=== PATIENT | male | born 1990 | race Caucasian/White ===

== ENCOUNTER 2018-01-01 09:44 | Emergency (ER) | payer SELFPAY ==
[2018-01-01 10:13] VITALS: BP 128/86; PULSE 88; RESP 20; TEMP 98.4; O2SAT 100
--- NOTE | 2018-01-01 11:06 | RADRPT ---
EXAM DATE/TIME: 01/01/2018 10:59 [facility] COMPARISON: No previous studies available for comparison. INDICATIONS : Chest pain. MEDICAL HISTORY : None. SURGICAL HISTORY : None. ENCOUNTER: Initial ACUITY: 1 day PAIN SCORE: 5/10 LOCATION: Bilateral chest FINDINGS: PA and lateral views of the chest demonstrate the lungs to be symmetrically aerated without evidence of mass, infiltrate or effusion. The cardiomediastinal contours are unremarkable. Osseous structure s are intact. CONCLUSION: No acute disease. David Tillman MD on January 01, 2018 at 11:04 Board Certified Radiologist. This report was verified electronically.
[2018-01-01] MEDS ORDERED: SODIUM CHLOR 0.9% 1000 ML INJ 1,000 ML IV SCH (11:25)
[2018-01-01] MEDS ORDERED: SODIUM CHLORIDE 0.9% FLUSH 10 ML FLUSH IV FLUSH PRN (11:30)
[2018-01-01] MEDS ORDERED: KETOROLAC TROMETHAMINE 30 MG/ML (IVP) VIAL IVP ONE (11:30)
[2018-01-01] MEDS ORDERED: PANTOPRAZOLE SODIUM 40 MG VIAL IVP ONE (11:30)
--- NOTE | 2018-01-01 11:33 | PD ---
HPI Chief Complaint: Chest Pain Time Seen by Provider: 11:13 Travel History International Travel<30 days: No Contact w/Intl Traveler<30days: No Traveled to known affect area: No History of Present Illness HPI 27-year-old male presents to the emergency department with complaint of abdominal pain and reproducible chest pain 1 week. Reports fever of 100.0 last night. Reports being sick with a cold a week and a half ago and had a cough, which has now resolved. Denies nasal congestion, ear pain, sore throat. Denies shortness of breath. Reports vomiting 3 or 4 days ago. Reports diarrhea now. Denies hematemesis, hematochezia. Denies dysuria, hematuria. Denies history of abdominal surgeries. Chest pain is midsternal. Abdominal pain is all over. Pain is constant. No known relieving factors. Chest pain and abdominal pain is worse with laughing, coughing, deep breathing, pressure to the area. Has not taken any medications or try any treatments to alleviate his symptoms. Reports occasional alcohol use. Denies illicit drug use. No primary care provider. No known allergies. Denies significant past medical history. Has no other medical complaints. No other modifying factors or associated signs and symptoms. PFSH Social History Tobacco Use: No Allergies-Medications (Allergen,Severity, Reaction): Coded Allergies: No Known Allergies (Unverified , 01/01/18) Reported Meds & Prescriptions Reported Meds & Active Scripts Active Tessalon Perles (Benzonatate) 100 Mg Cap 100 Mg PO TID PRN 3 Days Azithromycin 500 Mg Tab 500 Mg PO DAILY Ibuprofen 800 Mg Tab 800 Mg PO Q6HR PRN Robaxin (Methocarbamol) 500 Mg Tab 500 Mg PO QID PRN Review of Systems Except as stated in HPI: all other systems reviewed are Neg Physical Exam Narrative GENERAL: Well-nourished, well-developed black male patient, in no acute distress ; afebrile; nontoxic-appearing SKIN: Warm and dry. HEAD: Atraumatic. Normocephalic. EYES: Pupils equal and round. No scleral icterus. No injection or drainage. ENT: Mucosa pink and moist. Airway patent. NECK: Trachea midline. CHEST: Reproducible tenderness over the sternum; without deformity or crepitance. No retractions or use of accessory muscles. CARDIOVASCULAR: Regular rate and rhythm. No murmur appreciated. RESPIRATORY: No accessory muscle use. Clear to auscultation. Breath sounds equal bilaterally. GASTROINTESTINAL: Abdomen soft, tenderness on palpation to epigastric area, nondistended. Hepatic and splenic margins not palpable. Bowel sounds are active 4 quadrants. Nonrigid. No rebound tenderness. No guarding. MUSCULOSKELETAL: No obvious deformities. No clubbing. No cyanosis. No edema. NEUROLOGICAL: Awake and alert. Oriented 3. No obvious cranial nerve deficits. Motor grossly within normal limits. Normal speech. PSYCHIATRIC: Appropriate mood and affect; insight and judgment normal. Data Data Last Documented VS Vital Signs Date Time Temp Pulse Resp B/P (MAP) Pulse Ox O2 Delivery O2 Flow Rate FiO2 01/01/18 12:17 77 16 136/80 (98) 96 01/01/18 10:13 98.4 Orders Orders Electrocardiogram (01/01/18 ) Chest, Pa & Lat (01/01/18 ) Complete Blood Count With Diff (01/01/18 11:25) Comprehensive Metabolic Panel (01/01/18 11:25) Lipase (01/01/18 11:25) Urinalysis - C+S If Indicated (01/01/18 11:25) Us Abdomen Gallbladder (01/01/18 ) Iv Access Insert/Monitor (01/01/18 11:25) Pantoprazole Inj (Protonix Inj) (01/01/18 11:30) Sodium Chlor 0.9% 1000 Ml Inj (Ns 1000 M (01/01/18 11:25) Sodium Chloride 0.9% Flush (Ns Flush) (01/01/18 11:30) Ketorolac Inj (Toradol Inj) (01/01/18 11:30) Ct Pulmonary Angiogram (01/01/18 ) Iohexol 350 Inj (Omnipaque 350 Inj) (01/01/18 13:17) Ed Discharge Order (01/01/18 14:38) Labs Laboratory Tests Test 01/01/18 12:05 01/01/18 12:15 01/01/18 14:30 Urine Color YELLOW Urine Turbidity CLEAR Urine pH 6.0 Urine Specific [place] 1.037 Urine Protein 30 mg/dL Urine Glucose (UA) NEG mg/dL Urine Ketones TRACE mg/dL Urine Occult Blood NEG Urine Nitrite NEG Urine Bilirubin NEG Urine Urobilinogen 2.0 MG/DL Urine Leukocyte Esterase NEG Urine RBC LESS THAN 1 /hpf Urine WBC 1 /hpf Urine Squamous Epithelial Cells 1 /hpf Urine Mucus FEW /lpf Microscopic Urinalysis Comment CULT NOT INDICATED Blood Urea Nitrogen 9 MG/DL Creatinine 0.97 MG/DL Random Glucose 89 MG/DL Total Protein 7.8 GM/DL Albumin 3.9 GM/DL Calcium Level 8.9 MG/DL Alkaline Phosphatase 86 U/L Aspartate Amino Transf (AST/SGOT) 18 U/L Alanine Aminotransferase (ALT/SGPT) 17 U/L Total Bilirubin 0.3 MG/DL Sodium Level 138 MEQ/L Potassium Level 4.2 MEQ/L Chloride Level 105 MEQ/L Carbon Dioxide Level 28.1 MEQ/L Anion Gap 5 MEQ/L Estimat Glomerular Filtration Rate 94 ML/MIN Lipase 131 U/L White Blood Count 5.7 TH/MM3 Red Blood Count 4.67 MIL/MM3 Hemoglobin 12.9 GM/DL Hematocrit 39.3 % Mean Corpuscular Volume 84.2 FL Mean Corpuscular Hemoglobin 27.6 PG Mean Corpuscular Hemoglobin Concent 32.8 % Red Cell Distribution Width 12.6 % Platelet Count 197 TH/MM3 Mean Platelet Volume 8.2 FL CBC Comment AUTO DIFF Differential Total Cells Counted 100 Neutrophils % (Manual) 73 % Band Neutrophils % 3 % Lymphocytes % 16 % Monocytes % 7 % Basophils % 1 % Neutrophils # (Manual) 4.3 TH/MM3 Differential Comment FINAL DIFF MANUAL Platelet Estimate NORMAL Platelet Morphology Comment NORMAL MDM Medical Decision Making Medical Screen Exam Complete: Yes Emergency Medical Condition: Yes Medical Record Reviewed: Yes Differential Diagnosis Pleuritic chest pain, pneumonia, costochondritis, chest wall strain, gastritis, gastroenteritis, cholelithiasis, cholecystitis, ACS, PA, pericarditis Narrative Course 27-year-old male with reproducible chest pain and epigastric abdominal pain on exam. EKG and chest x-ray ordered in triage. EKG with normal sinus rhythm and MT depression noted inferiorly; reviewed by Dr. Perez. Chest x-ray with no acute findings. I discussed the patient with Dr. Perez, my attending physician, and we discussed a plan of care. CBC, CMP, lipase, urinalysis, right upper quadrant abdominal ultrasound, CT pulmonary angiogram, IV, IV fluids , Toradol, Protonix ordered. 1419: BMP unremarkable. Urinalysis without signs of infection. Gall Bladder Ultrasound 01/01/18 0000 Signed Impressions: Service Date/Time: December 11:34 - CONCLUSION: Normal right upper quadrant ultrasound. No gallstones are present. Perez Carrillo MD Chest X-Ray 01/01/18 0000 Signed Impressions: Service Date/Time: December 10:59 - CONCLUSION: No acute disease. David Tillman MD CT Angiography 01/01/18 0000 Signed Impressions: Service Date/Time: December 13:13 - CONCLUSION: 1. No evidence for pulmonary embolism. 2. Minimal patchy densities lower lobes likely inflammatory. David Tillman MD I discussed ultrasound findings with the patient and Dr. Perez. Azithromycin, Tessalon Perles, ibuprofen, Robaxin prescribed for home. Instructed patient to follow up with primary care provider. Patient verbalizes understanding and agreement with treatment plan. Patient is medically cleared and stable for discharge. Discussed reasons to return to the emergency department. Patient agrees with treatment plan. The patients vital signs are stable and the patient is stable for outpatient follow-up and treatment. Patient discharged home, stable and in no acute distress. Diagnosis Primary Impression: Pneumonia Qualified Codes: J18.1 - Lobar pneumonia, unspecified organism Referrals: [facility] Primary Care Physician Patient Instructions: Community Acquired Pneumonia (ED), General Instructions Departure Forms: Tests/Procedures, Work Release Enter return to work date: Jan 03, 2018 Additional Instructions: Ibuprofen or Tylenol as directed and as needed to reduce fever; may alternate ibuprofen and Tylenol as needed every 3 hours to minimize fever [id number] cold/flu medications as directed and as needed for symptom management Get plenty of sleep/rest Drink plenty of fluids to prevent dehydration; such as Gatorade, Powerade, Pedialyte [place] diet to encourage nutrition such as crackers, fruit, applesauce, toast, soup etc. Use an air humidifier/turn off ceiling fans Follow-up with your primary care provider within 1 day Return immediately to the emergency department with worsening of symptoms Med/Other Pt SpecificInfo: Prescription(s) given Scripts Benzonatate (Tessalon Perles) 100 Mg Cap 100 MG PO TID Y for COUGH for 3 Days, CAP 0 Refills Prov: Keisha Zaman [employer] 01/01/18 Azithromycin (Azithromycin) 500 Mg Tab 500 MG PO DAILY for Infection, #5 TAB 0 Refills Prov: Keisha Zaman 01/01/18 Ibuprofen (Ibuprofen) 800 Mg Tab 800 MG PO Q6HR Y for PAIN, #30 TAB 0 Refills Prov: Keisha Zaman 01/01/18 Methocarbamol (Robaxin) 500 Mg Tab 500 MG PO QID Y for MUSCLE SPASM, #30 TAB 0 Refills Prov: Keisha Zaman 01/01/18 Disposition: 01 DISCHARGE HOME Condition: Stable Keisha Zaman Jan 01, 2018 11:33
[2018-01-01 12:17] VITALS: BP 136/80; PULSE 77; RESP 16; O2SAT 96
--- NOTE | 2018-01-01 12:24 | RADRPT ---
EXAM DATE/TIME: 01/01/2018 11:34 [facility] COMPARISON: No previous studies available for comparison. INDICATIONS : Right upper quadrant pain. MEDICAL HISTORY : Right upper quadrant pain. Renal infections. SURGICAL HISTORY : None. ENCOUNTER: Initial ACUITY: 1 week PAIN SCORE: 8/10 LOCATION: Right upper quadrant MEASUREMENTS: LIVER: 14.0 cm length COMMON DUCT: 3 mm RIGHT KIDNEY: 11.0 x 4.8 x 4.6 cm FINDINGS: LIVER: Normal echotexture without focal lesion or ductal dilatation. COMMON DUCT: No intraluminal mass or stone visualized. GALLBLADDER: Contains no stones, demonstrates no wall thickening or pericholecystic fluid. PANCREAS: The visualized portions are within normal limits. RIGHT KIDNEY: No evidence of hydronephrosis, stone, or mass. CONCLUSION: Normal right upper quadrant ultrasound. No gallstones are present. Perez Carrillo MD on January 01, 2018 at 12:22 Board Certified Radiologist. This report was verified electronically.
[2018-01-01 12:40] LABS: BILIRUBIN, URINE NEG (NEG); BLOOD, URINE NEG (NEG); GLUCOSE,URINE NEG (NEG); KETONE, URINE TRACE mg/dL (NEG); MUCUS URINE FEW /lpf (OCC); NITRITE,URINE NEG (NEG); SQUAMOUS EPITHELIAL CELL URINE 1 /hpf (0-5); URINE COLOR YELLOW (YELLW/STRAW); URINE LEUKOCYTE ESTERASE NEG (NEG)
[2018-01-01 12:46] LABS: ALBUMIN 3.9 GM/DL (3.4-5.0); ALT (GPT) 17 U/L (12-78); AST (GOT) 18 U/L (15-37); BICARBONATE 28.1 MEQ/L (21.0-32.0); BLOOD UREA NITROGEN 9 MG/DL (7-18); CALCIUM 8.9 MG/DL (8.5-10.1); CHLORIDE 105 MEQ/L (98-107); CREATININE 0.97 MG/DL (0.60-1.30); GLOMERULAR FILTRATION RATE 94 ML/MIN (>89); GLUCOSE,RANDOM 89 MG/DL (74-106); SODIUM (NA) 138 MEQ/L (136-145)
[2018-01-01 12:48] LABS: ALKALINE PHOSPHATASE 86 U/L (45-117); TOTAL BILIRUBIN ADULT 0.3 MG/DL (0.2-1.0); TOTAL PROTEIN 7.8 GM/DL (6.4-8.2)
[2018-01-01] MEDS ORDERED: IOHEXOL 350 MG/ML 10 ML VIAL (for RAD DIAG) IVCONTRAST ONE (13:17)
--- NOTE | 2018-01-01 13:25 | EKG ---
Date Performed: 01/01/2018 Time Performed: 10:23:11 PTAGE: 27 years EKG: Sinus rhythm ST ELEVATION, PROBABLY EARLY REPOLARIZATION BORDERLINE ECG NO PREVIOUS TRACING DOCTOR: Rajendra Ward Interpretating Date/Time 01/01/2018 13:23:58
--- NOTE | 2018-01-01 13:35 | RADRPT ---
EXAM DATE/TIME: 01/01/2018 13:13 [facility] COMPARISON: No previous studies available for comparison. INDICATIONS : Chest pain, cough IV CONTRAST: 73 cc Omnipaque 350 (iohexol) IV RADIATION DOSE: 9.56 CTDIvol (mGy) MEDICAL HISTORY : None SURGICAL HISTORY : None. ENCOUNTER: Initial ACUITY: 4 - 6 days PAIN SCALE: 7/10 LOCATION: chest TECHNIQUE: Volumetric scanning of the chest was performed using a pulmonary embolism protocol MIP images were re constructed. Using automated exposure control and adjustment of the mA and/or kV according to patien t size, radiation dose was kept as low as reasonably achievable to obtain optimal diagnostic quality images. DICOM format image data is available electronically for review and comparison. Follow-up recommendations for detected pulmonary nodules are based at a minimum on nodule size and pa tient risk factors according to Fleischner Society Guidelines. FINDINGS: PULMONARY ARTERIES: No filling defects are seen in the pulmonary arteries through the segmental level. LUNGS: There is no consolidation or pneumothorax . No concerning pulmonary nodule is visualized. Minimal pa tchy densities in the lower lobes. PLEURAE: There is no pleural thickening or pleural effusion. MEDIASTINUM: There is good visualization of the great vessels of the middle mediastinum. No evidence of mediastin al or hilar adenopathy/mass. MUSCULOSKELETAL: Within normal limits for patient age. MISCELLANEOUS: The visualized upper abdominal organs demonstrate no acute abnormality. CONCLUSION: 1. No evidence for pulmonary embolism. 2. Minimal patchy densities lower lobes likely inflammatory. David Tillman MD on January 01, 2018 at 13:32 Board Certified Radiologist. This report was verified electronically.
[2018-01-01] MEDS ORDERED: BENZ100 PO (14:37)
[2018-01-01] MEDS ORDERED: AZIT500T2 PO (14:37)
[2018-01-01] MEDS ORDERED: IBUP1TAB7 PO (14:37)
[2018-01-01] MEDS ORDERED: ROBA500T PO (14:37)
[2018-01-01 14:43] LABS: HEMATOCRIT 39.3 % (39.0-51.0); HEMOGLOBIN 12.9 GM/DL (13.0-17.0); MEAN CELL VOLUME 84.2 FL (80.0-100.0); MEAN CORPUSCULAR HEMOGLOBIN 27.6 PG (27.0-34.0); MEAN CORPUSCULAR HGB CONC 32.8 % (32.0-36.0); MEAN PLATELET VOLUME 8.2 FL (7.0-11.0); PLATELET COUNT 197 TH/MM3 (150-450); RED BLOOD COUNT 4.67 MIL/MM3 (4.50-5.90); RED CELL DISTRIBUTION WIDTH 12.6 % (11.6-17.2); WHITE BLOOD COUNT 5.7 TH/MM3 (4.0-11.0)
[2018-01-01 15:27] LABS: BANDS 3 % (0-6); BASOPHILS 1 % (0-2); LYMPHOCYTES 16 % (9-44); MONOCYTES 7 % (0-8); NEUTROPHIL # MANUAL DIFF 4.3 TH/MM3 (1.8-7.7); POLYS (SEG NEUTROPHILS) 73 % (16-70)
== END 2018-01-01 15:15 | disposition home or self-care (01) ==
LOC: NEPD 09:44
DX: J18.1 Lobar pneumonia, unspecified organism (principal); R07.9 Chest pain, unspecified; R10.13 Epigastric pain; R19.7 Diarrhea, unspecified; R94.31 Abnormal electrocardiogram [ECG] [EKG]
CPT/HCPCS: 71046; 71275; 76705; 80053; 81001; 83690; 85007; 85027; 93005; 96374; 96375; 99285; C9113; J1885; J7030; Q9967